=== PATIENT | female | born 1990 | race Caucasian/White ===

== ENCOUNTER 2016-09-02 20:48 | Emergency (ER) | payer OTHER ==
[~2016-09-02 20:48] MED LIST: BC PILL; CELEXA; FLEXERIL10 MG PO; NO MEDICATIONS; PHENERGAN25 MG PO; PRENATAL VITAMI1 TA3 PO; TYLENOL #3 PO
== END 2016-09-02 21:49 | disposition home or self-care (01) ==
LOC: CED 20:48
DX: T40.1X1A Poisoning by heroin, accidental (unintentional), initial encounter (principal); F41.9 Anxiety disorder, unspecified; F17.210 Nicotine dependence, cigarettes, uncomplicated
CPT/HCPCS: 82947; 99282